=== PATIENT | female | born 1980 | race African-American/Black ===

== ENCOUNTER 2020-07-27 15:24 | Emergency (ER) | payer MEDICAID ==
[~2020-07-27] VITALS: Ht 162.6 cm; Wt 82.0 kg
[2020-07-27 15:29] VITALS: BP 117/70
[2020-07-27 17:37] LABS: CLARITY URINE CLEAR (CLEAR); COLOR URINE YELLOW (YELLOW); KETONES URINE TRACE (NEGATIVE); LEUKOCYTE ESTERASE URINE 1+ (NEGATIVE); NITRITE URINE NEGATIVE (NEGATIVE); OCCULT BLOOD URINE NEGATIVE (NEGATIVE); PROTEIN URINE NEGATIVE (NEGATIVE); SPECIFIC GRAVITY URINE 1.029 (1.005-1.030)
[2020-07-27 18:33] LABS: HEMATOCRIT. 31.9 % (36.0-48.0); HEMOGLOBIN. 10.8 g/dL (12.0-16.0); MEAN CORPUSCULAR HEMOGLOBIN 30.7 pg (28.0-32.0); MEAN CORPUSCULAR VOLUME 90.5 fL (81.0-99.0); MEAN PLATELET VOLUME 10.7 fl (7.4-10.4); PLATELET 168 x1000/uL (130-400); RED BLOOD CELL COUNT 3.52 mill/uL (4.2-5.4); RED CELL DISTRIBUTION WIDTH 12.4 % (11.6-14.6)
[2020-07-27 18:42] LABS: CHLORIDE 108 mEq/L (98-107)
[2020-07-27 19:06] LABS: B-HCG QUANTITATIVE 6952 mIU/mL (<3)
[2020-07-27 19:20] LABS: PLATELET ESTIMATE NORMAL
[2020-07-27] MEDS ORDERED: CEPH500T MT (20:19)
== END 2020-07-27 20:44 | disposition home or self-care (01) ==
LOC: ER 15:24
DX: O26.891 Other specified pregnancy related conditions, first trimester (principal); Z3A.01 Less than 8 weeks gestation of pregnancy
CPT/HCPCS: 36415; 76801; 80053; 81003; 81025; 84702; 85025; 86850; 86900; 99284